=== PATIENT | female | born 1980 | race Caucasian/White ===

== ENCOUNTER 2021-02-06 12:23 | Outpatient (REF) | payer SELFPAY ==
--- NOTE | 2021-02-07 08:09 | MHC.AU.HFU ---
Hearing Instrument Follow-Up- Binaural Date of Visit: 02/06/21 Operations Trainer Used: Not Applicable Right Ear: Logistics Officer: O[employer]on Model: OPN 3 mini RITE (100) Mother's hearing aids transferred name with [employer] on 03/14/2020 Serial Number: [id number] Repair Warranty: Battery 312 Hospitalist Physician: #2 85 gain Type of Dome: 8mm closed Type of Wax Guard: mini Fit ProWax Dispensed By: [facility] Date of Fitting: Transfer of Care 03/14/2020 Left Ear: Logistics Officer: Oticon Model: OPN 3 mini RITE (100) Mother's hearing aids transferred name with [employer] on 03/14/2020 Serial Number: [id number] Repair Warranty: Battery Size: 312 Hospitalist Physician: #2 85 gain Type of Dome: 8mm closed Type of Wax Guard: mini Fit ProWax Dispensed By: [facility] Date of Fitting: Transfer of Care 03/14/2020 Follow-Up Summary: Patient reports the left aid stopped working shortly after being fit but not able to come to office due to COVID-19. Both hearing aids are not staying in ears well and she wants custom earmolds. Cleaned both aids. Left wax guard blocked with cerumen. Both aids now amplifying well. Took impressions of both ears without complication and will order canal lock micro molds. Recommendations: Recommendations (Other): Call patient when Oticon micro molds in. NEED TIME TO FIT MOLDS AND RUN REAL EAR MEASUREMENTS. Diagnosis Code(s): Primary Diagnosis: H90.3 Bilateral Sensorineural Hearing Loss Services Performed: WELCH Non-Quantity Charges: HANC: NonBillable Event Signature: Provider: Tesfaye Yanes, [facility]
== END 2021-02-06 12:24 | disposition home or self-care (01) ==
LOC: HO.HAP 12:23
PROVIDERS: Visit Provider Nurse Practitioner Family
DX: Z13.89 Encounter for screening for other disorder (principal)

== ENCOUNTER 2021-03-13 12:28 | Outpatient (REF) | payer SELFPAY | END 2021-03-13 12:29 | disposition home or self-care (01) | LOC: HO.HAP 12:28 | PROVIDERS: Visit Provider Nurse Practitioner Family | DX: Z46.1 Encounter for fitting and adjustment of hearing aid (principal); H90.3 Sensorineural hearing loss, bilateral | CPT/HCPCS: V5264 ==

== ENCOUNTER 2021-04-03 09:56 | Outpatient (REF) | payer SELFPAY ==
--- NOTE | 2021-04-03 10:57 | MHC.AU.HFU ---
Hearing Instrument Follow-Up- Binaural Date of Visit: 04/03/21 Right Ear: Webbing Seamer Pound Net: Oticon Model: OPN 3 mini RITE (100) Mother's hearing aids transferred name with [employer] on 03/14/2020 Serial Number: [id number] Repair Warranty: Battery Size: 312 Vice President Of Operations: #2 85 gain Type of Mold: RITE Canal Lock miniFit Mold [id number] Remake warranty 06/02/2021 Type of Wax Guard: mini Fit ProWax Dispensed By: [facility] Date of Fitting: Transfer of Care 03/14/2020 Left Ear: Webbing Seamer Pound Net: Oticon Model: OPN 3 mini RITE (100) Mother's hearing aids transferred name with [employer]on on 03/14/2020 Serial Number: [id number] Repair Warranty: Battery Size: 312 Vice President Of Operations: #2 85 gain Type of Mold: RITE Canal Lock miniFit Mold [id number] Remake warranty 06/02/2021 Type of Wax Guard: mini Fit ProWax Dispensed By: [facility] Date of Fitting: Transfer of Care 03/14/2020 Follow-Up Summary: F/U appointment after fit of Oticon canal lock earmolds. Patient reports the left earmold often moves up in the ear and she has to push down on the canal lock to put back in place. The right aid is perfect . Sound quality is good compared to when using domes. Since aid is not in warranty and did not have a Left #3 85 gain document management technician in stock, used heat to lengthen the left document management technician wire in order to not charge patient $125.00 for new document management technician. Patient reports the mold seems to be staying in place while in office after several minutes of jaw and head movement. Recommendations:Hearing instrument follow-up or maintenance as needed. Patient will call if problems persist. Diagnosis Code(s): Primary Diagnosis: H90.3 Bilateral Sensorineural Hearing Loss Services Performed: WELCH Non-Quantity Charges: HANC: NonBillable Event Signature: Provider: Tesfaye Yanes, [facility]
== END 2021-04-03 09:57 | disposition home or self-care (01) ==
LOC: HO.HAP 09:56
PROVIDERS: Visit Provider Nurse Practitioner Family
DX: Z13.89 Encounter for screening for other disorder (principal)

== ENCOUNTER 2022-03-21 12:22 | Outpatient (REF) | payer SELFPAY ==
--- NOTE | 2022-03-21 15:45 | MHC.AU.FUL ---
Hearing Instrument Follow-Up Date of Visit: 03/21/22 Seed Sorter Used: Not Applicable Left Ear: Letter Sorting Machine Operator: O[employer]on Model: OPN 3 mini RITE (100) Mother's hearing aids transferred name with [employer] on 03/14/2020 Serial Number: [id number] Repair Warranty: Battery Size: 312 Color: chestnut brown Die Developer: #2 85 gain Type of Mold: RITE Canal Lock miniFit Mold [id number] Remake warranty 06/02/2021 Type of Wax Guard: mini Fit ProWax Dispensed By: [facility] Date of Fitting: Transfer of Care 03/14/2020 Follow-Up Summary: Performed extensive listening check as patient reported aid working for 10 min then cutting out. Listened to aid for 2 hours without incident. Cleaned aid, put aid in dehumidifier. Will evp general counsel patient about moisture and possible humidity contributing. If it continues may need to go out for out of warranty repair if persists. Recommendations: Patient will call if problems persist. Diagnosis Code(s): Primary Diagnosis: H90.3 Bilateral Sensorineural Hearing Loss Secondary Diagnosis: Services Performed: Listening check Dehumidification WELCH Non-Quantity Charges: HANC: NonBillable Event Signature: Provider: Josemanuel Johnson, FAAA
== END 2022-03-21 12:23 | disposition home or self-care (01) ==
LOC: HO.HAP 12:22
PROVIDERS: Visit Provider Nurse Practitioner Family
DX: Z13.89 Encounter for screening for other disorder (principal)

== ENCOUNTER 2022-03-22 12:23 | Outpatient (REF) | payer SELFPAY | END 2022-03-22 12:24 | disposition home or self-care (01) | LOC: HO.HAP 12:23 | PROVIDERS: Visit Provider Nurse Practitioner Family | DX: Z13.89 Encounter for screening for other disorder (principal) ==